=== PATIENT | male | born 1985 | race Hispanic/Latino ===

== ENCOUNTER 2025-03-17 08:24 | Emergency (ER) | payer MEDICAID, SELFPAY ==
[~2025-03-17] VITALS: Ht 167.6 cm; Wt 95.2 kg
[2025-03-17] MEDS ORDERED: IBUP600T42 PO (08:46)
[2025-03-17] MEDS ORDERED: PRED10TA2 PO (10:30)
[2025-03-17 10:34] VITALS: BP 131/85; TEMP 98.3; O2SAT 100
== END 2025-03-17 10:42 | disposition home or self-care (01) ==
LOC: M ED 08:24
DX: G50.0 Trigeminal neuralgia (principal)